=== PATIENT | female | born 1955 | race Caucasian/White ===

== ENCOUNTER 2022-03-13 11:42 | Observation (INO) ==
[2022-03-13 12:27] LABS: Basophils # 0.1 10*3/uL (0.0-0.2); Basophils % 0.6 % (0.0-0.8); Eosinophils # 0.2 10*3/uL (0.0-0.87); Eosinophils % 1.6 % (0.00-10.9); Hematocrit 40.5 VOL% (35.7-47.0); Hemoglobin 12.9 GM/DL (12.0-16.0); Immature Granulocytes % 0.5 %; Immature Granulocytes Absolute 0.05 #; Lymphocytes # 3.4 10*3/uL (1.4-4.0); Lymphocytes % 35.4 % (21.3-54.2); Mean Corpuscular HGB Conc 31.9 GM/DL (32-36); Mean Corpuscular Volume 84.7 FL (87-102); Mean Platelet Volume 9.6 FL (9.6-12.0); Monocytes # 0.8 10*3/uL (0.11-0.8); Monocytes % 8.2 % (1.7-12.7); Neutrophils % 53.7 % (38.7-73.9); Platelet Count 230 T/CUMM (130-400); Red Blood Count 4.78 MC/CUMM (3.8-5.5); Red Cell Distribution Width 14.2 % (9.3-17.3); White Blood Count 9.5 T/CUMM (4-12)
[2022-03-13 12:39] LABS: PT Patient Result 10.7 SECS (10.1-12.1)
[2022-03-13 12:49] LABS: Albumin 4.1 G/DL (3.4-5.0); Bilirubin,Total 0.8 MG/DL (0.20-1.00); Calcium 9.9 MG/DL (8.5-10.1); Osmolality,Calculated 283.3 MOS/KG (273-304); Potassium 4.5 MMOL/L (3.5-5.1); Total Protein 7.6 G/DL (6.4-8.2)
[2022-03-13] MEDS ORDERED: ZALEPLON 5 MG CAPSULE PO PRN (13:10)
[2022-03-13] MEDS ORDERED: BISACODYL 5 MG TABLET PO PRN (13:10)
[2022-03-13] MEDS ORDERED: SIMETHICONE CHEW 125 MG TABLET PO PRN (13:10)
[2022-03-13] MEDS ORDERED: MORPHINE 2 MG/1 ML SYRINGE IV PRN (13:10)
[2022-03-13] MEDS ORDERED: ONDANSETRON 4 MG/2 ML VIAL IV PRN (13:10)
[2022-03-13] MEDS ORDERED: ACETAMINOPHEN 325 MG TABLET PO PRN (13:10)
[2022-03-13] MEDS ORDERED: LACTULOSE 20 GM/30 ML UDCUP PO PRN (13:10)
[2022-03-13] MEDS ORDERED: ALUMINUM/MAGNES/SIMETH MAX STR 30 ML UDCUP PO PRN (13:10)
[2022-03-13] MEDS ORDERED: CALCIUM CARBONATE CHEW 500 MG TABLET PO PRN (13:10)
[2022-03-13] MEDS ORDERED: GLUCAGON 1 MG VIAL IM PRN (13:13)
[2022-03-13] MEDS ORDERED: DEXTROSE 10% 250 ML BAG IV PRN (13:20)
[2022-03-13] MEDS ORDERED: FUROSEMIDE 20 MG TABLET PO PRN (13:40)
[2022-03-13] MEDS: GABAPENTIN 600 MG TABLET PO SCH ×2 (16:28→20:43)
[2022-03-13] MEDS ORDERED: metFORMIN 500 MG TABLET PO SCH (17:00)
[2022-03-13] MEDS: INSULIN LISPRO 100 UNIT/ML SUBCUT SCH ×2 (17:09→20:44)
[2022-03-13] MEDS: FAMOTIDINE 20 MG TABLET PO SCH (20:43)
[2022-03-13] MEDS: MAGNESIUM CHLORIDE 64 MG TABLET PO SCH (20:43)
[2022-03-13] MEDS: APIXABAN 5 MG TABLET PO SCH (20:43)
[2022-03-13] MEDS: METOPROLOL TARTRATE 50 MG TABLET PO SCH (20:43)
[2022-03-13] MEDS ORDERED: SIMVASTATIN 20 MG TABLET PO SCH (21:00)
[2022-03-14 04:33] LABS: Basophils # 0.1 10*3/uL (0.0-0.2); Basophils % 0.6 % (0.0-0.8); Eosinophils # 0.2 10*3/uL (0.0-0.87); Eosinophils % 2.6 % (0.00-10.9); Hematocrit 38.4 VOL% (35.7-47.0); Hemoglobin 11.8 GM/DL (12.0-16.0); Immature Granulocytes % 0.5 %; Immature Granulocytes Absolute 0.04 #; Lymphocytes # 3.9 10*3/uL (1.4-4.0); Mean Corpuscular HGB Conc 30.7 GM/DL (32-36); Mean Corpuscular Volume 87.5 FL (87-102); Mean Platelet Volume 9.9 FL (9.6-12.0); Monocytes # 0.8 10*3/uL (0.11-0.8); Monocytes % 8.7 % (1.7-12.7); Neutrophils % 43.6 % (38.7-73.9); Platelet Count 196 T/CUMM (130-400); Red Blood Count 4.39 MC/CUMM (3.8-5.5); Red Cell Distribution Width 14.2 % (9.3-17.3); White Blood Count 8.8 T/CUMM (4-12)
[2022-03-14 05:19] LABS: Calcium 9.2 MG/DL (8.5-10.1); Osmolality,Calculated 286.1 MOS/KG (273-304); Potassium 3.8 MMOL/L (3.5-5.1); Risk Ratio 5.65; Thyroid Stimulating Hormone 1.59 uIU/ml (0.358-3.74)
[2022-03-14] MEDS: INSULIN LISPRO 100 UNIT/ML SUBCUT SCH (08:10)
[2022-03-14] MEDS: GABAPENTIN 600 MG TABLET PO SCH (08:28)
[2022-03-14] MEDS: METOPROLOL TARTRATE 50 MG TABLET PO SCH (08:29)
[2022-03-14] MEDS: APIXABAN 5 MG TABLET PO SCH (08:29)
[2022-03-14] MEDS: FAMOTIDINE 20 MG TABLET PO SCH (08:30)
[2022-03-14] MEDS: MAGNESIUM CHLORIDE 64 MG TABLET PO SCH (08:30)
[2022-03-14] MEDS ORDERED: DIGOXIN 0.25 MG TABLET PO SCH (09:00)
[2022-03-14] MEDS ORDERED: CYANOCOBALAMIN 500 MCG TABLET PO SCH (09:00)
[2022-03-14] MEDS ORDERED: PANTOPRAZOLE 40 MG TABLET PO SCH (09:00)
[2022-03-14] MEDS ORDERED: LIRAGLUTIDE 0.6 MG/0.1 ML SUBCUT SCH (09:00)
[2022-03-14] MEDS ORDERED: FENOFIBRATE 145 MG TABLET PO SCH (09:00)
[2022-03-14] MEDS ORDERED: PARoxetine 20 MG TABLET PO SCH (09:00)
[2022-03-14 12:32] VITALS: BP 147/82
[2022-03-15] MEDS ORDERED: NON-FORMULARY MEDICATION (Semaglutide [Ozempic] 0.25 mg or 0.5 mg(2 mg/1.5 mL) Pen Injecto SUBCUT SCH (13:40)
== END 2022-03-14 12:39 | disposition home or self-care (01) ==
LOC: N.ED 11:42 → N.TELES 11:42
PROVIDERS: ADMIT Internal Medicine Interventional Cardiology; ATTEND Internal Medicine Interventional Cardiology